=== PATIENT | female | born 1990 | race Caucasian/White ===

== ENCOUNTER 2020-09-04 06:16 | Inpatient (IN) ==
[2020-09-04] MEDS ORDERED: OXYTOCIN 30 UNITS/500 ML BAG IV PRN ×2 (06:58→08:31)
[2020-09-04] MEDS ORDERED: PENICILLIN G POTASSIUM 6 MU in DEXTROSE 5% 250 ML IV STA (07:07)
--- NOTE | 2020-09-04 07:13 | History & Physical Report ---
Date of Service September 04, 2020 Assessment & Plan (1) SROM (spontaneous rupture of membranes): 30 y/o at 40 4/7 wga presenting w/ SROM -VSS, initial BP mild range, likely as walked in and marci and no hx elevated BPs, will recheck and get labs if indicated -Fetus cat 1 -Labor - SVE slightly progressed from yesterday and marci regularly, will recheck in few hours and start pit if indicated -GBS+, PCN ppx -epidural PRN -will order covid swab Admission and Anticipated Discharge Date Admission Date: September 04, 2020 History of Present Illness Chief Complaint: ROM Primary Care Provider: Robni Davis 30 y/o at 40 4/7 wga w/ NATALIYA 08/31 by LMP c/w 1st tri US presents after LOF around 5AM as she walked to the bathroom. This continued a bit more as she walked around. Had been marci all day yesterday, worsened after leaking began. 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 G2 current 30 day cycles Hx HSV Last pap 2019 wnl, no hx abnl Allergies Allergy/AdvReac Type Severity Reaction Status Date / Time nickel Allergy Unknown RASH Verified 09/03/20 16:52 codeine AdvReac Unknown NAUSEA/VOMI Verified 09/03/20 16:52 TTING Home Medications Medication Instructions Recorded Confirmed Type aspirin 81 mg tablet,delayed 81 mg PO DAILY 01/31/20 09/03/20 History release famotidine 40 mg tablet 40 mg PO BID 01/31/20 09/03/20 History prenat.vits,dru,lag-syjm-mgftc 1 tab PO DAILY 01/31/20 09/03/20 History valacyclovir 1 gram tablet 1,000 mg PO ONCE 30 Days #30 tab 08/08/20 09/03/20 Rx Patient History Medical History Genital herpes No known health problems Surgical History History of esophagogastroduodenoscopy (EGD) S/P cholecystectomy S/P colonoscopy S/P tonsillectomy S/P wisdom tooth extraction Family History Mother Colorectal cancer Father Thyroid disease Heart disease Aunt Colorectal cancer Grandfather (Maternal) Colorectal cancer Grandmother (Maternal) Colorectal cancer Social History Smoking Status: Never smoker Hx Alcohol Use: No Hx Substance Use: No Preferred Language: Estonian Communication Ability: Effective Log Preparer Required: No Beliefs That Will Affect Care: None marital status: marital status details: Magnus (33) [phone] Current Living Situation: Spouse Current Living Situation Comment: lives with spouse, 1 cat, pt changing litter, wearing mask and gloves. 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 Feels Safe at Home: Yes Physical Exam Constitutional: WD/WN, vitals as above Respiratory: normal respiratory effort; no respiratory distress and no labored breathing Gastrointestinal (Abdomen): Inspection/Auscultation: abdomen normal to inspection Percussion/Palpation: abdomen soft; abdomen nontender and no guarding Psychiatric: A+Ox3, euthymic affect Genitourinary: OB Exam Abdomen: + vertex (confirmed by BSUS) and + estimated weight (7-8lb) Manual OB Exam: + cervical dilation 2 cm, + cervical effacement 80%, + station -2 and + amniotic fluid (Gross pooling noted) meconium (light) and nitrazine positive OB Exam Monitor Tracing: + external FHT monitor used, + external uterine monitor used (q4-5min) and + category I (130/mod/+accel/-decel) SSE neg for HSV lesions Results & Data ([facility]) Vital Signs (Past 12 Hours) Vital Signs Pulse BP 09/04/20 06:35 80 141/78 H Laboratory Results OB Labs: Blood Type A Positive 02/01/20 Antibody Screen NEGATIVE 02/01/20 Hemoglobin 11.2 g/dL (12.0-16.0) L 06/09/20 Hematocrit 33.9 % (37-47) L 06/09/20 Mean Corpuscular Volume 88.5 fL (80-100) 02/01/20 Platelet Count 232 K/uL (130-400) 02/01/20 Rubella IgG Antibody Immune (Immune) 02/01/20 Rapid Plasma Reagin Nonreactive (Nonreactive) 02/01/20 Hepatitis B Surface Antigen Neg (Neg) 02/01/20 HIV (1&2) Ab and P24 Ag, 4th Gener Neg (Neg) 02/01/20 Glucose 1 Hour 50 gm Load 162 mg/dl (70-130) H 03/21/20 Maternal Serum Alpha Fetoprotein 23.1 ng/mL 03/21/20 OB Optional Labs: Chlamydia trachomatis RNA NOT DETECTED (NOT DETECTED) 02/01/20 Neisseria gonorrhoeae RNA NOT DETECTED (NOT DETECTED) 02/01/20 Alpha Fetoprotein Triple Screen SEE NOTE 03/21/20 Labs Reviewed: failed 16wk 1hr glucola, 2hr gtt wnl 03/21/20 neg msafp 02/05/20 panorama low risk GBS+ Diagnostic Findings Posterior placenta Code Status & VTE Plan VTE Prophylaxis Plan VTE Prophylaxis will be ordered: Yes Coding Level of Care Code None Diagnoses SROM (spontaneous rupture of membranes)
[2020-09-04 07:54] LABS: Hemoglobin 12.3 g/dL (12.0-16.0); Mean Corpuscular Hemoglobin 30.4 pg (25-34); Mean Corpuscular Hgb Conc 34.2 g/dL (32-36); Mean Corpuscular Volume 89.1 fL (80-100); Mean Platelet Volume 12.9 fL (7.4-10.4); Platelet Count 126 K/uL (130-400); RDW Coefficient of Variation 13.5 % (11.5-14.5); RDW Standard Deviation 44.1 fL (36.4-46.3); Red Blood Count 4.04 M/uL (4.2-5.4); White Blood Count 11.59 K/uL (4.8-10.8)
[2020-09-04 07:55] LABS: Platelet Estimate Decreased (Normal)
[2020-09-04] MEDS: LACTATED RINGER'S 1,000 ML IV PRN ×3 (08:00→18:47)
[2020-09-04] MEDS: PENICILLIN G POTASSIUM 3 MU in DEXTROSE 5% 100 ML IV PRN ×3 (11:46→20:11)
[2020-09-04] MEDS ORDERED: fentaNYL citrate 100 MCG/2 ML VIAL ONE (14:57)
[2020-09-04] MEDS ORDERED: fentaNYL 2MCG/ML ROPIVACAINE 1.25MG/ML 100 ML BAG EPI ONE (14:57)
[2020-09-04] MEDS ORDERED: SODIUM CHLORIDE 0.9% INJ 10 ML VIAL ONE (14:57)
[2020-09-04] MEDS ORDERED: ePHEDrine sulfate 50 MG/ML AMP ONE (14:57)
[2020-09-04] MEDS ORDERED: BUPIVACAINE 0.25% 30 ML VIAL ONE (14:57)
--- NOTE | 2020-09-04 15:38 | Anesthesiology Consultation ---
Date of Service September 04, 2020 Assessment & Plan (1) Encounter for pre-operative examination: Chart Review Chart Review: Patient NOT seen in Pre Admission Testing and Acceptable Risk for Labor Epidural Consults Requested none ASA ASA2 Proposed Anesthesia Anesthesia Type: Labor Epidural Risk / Benefits Reviewed With: PT / POA / Parent / Guardian, Accepts Plan and Informed Consent Obtained History Height/Weight Height: 5 ft 2 in Weight: 68.039 kg Allergies Allergy/AdvReac Type Severity Reaction Status Date / Time nickel Allergy Unknown RASH Verified 09/04/20 10:02 codeine AdvReac Unknown NAUSEA/VOMI Verified 09/04/20 10:02 TTING Medications Home Medications Medication Instructions Recorded Confirmed Last Taken aspirin 81 mg tablet,delayed 81 mg PO DAILY 01/31/20 09/04/20 09/04/20 05:00 release famotidine 40 mg tablet 40 mg PO BID 01/31/20 09/04/20 09/04/20 05:00 prenat.vits,dru,vct-nshs-ahfub 1 tab PO DAILY 01/31/20 09/04/20 09/04/20 05:00 valacyclovir 1 gram tablet 1,000 mg PO ONCE 30 Days #30 tab 08/08/20 09/04/20 09/04/20 05:00 Active Medications Generic Name Dose Route Start Last Admin Trade Name Crystal PRN Reason Stop Dose Admin Penicillin G Potassium 3 mu/ 106 mls @ 100 mls/hr 09/04/20 06:58 09/04/20 15:37 Dextrose IV 09/14/20 06:57 100 mls/hr Q4H PRN Administration Give until delivery Lactated Ringer's 1,000 mls @ 125 mls/hr 09/04/20 06:58 09/04/20 15:13 Lr IV 09/06/20 06:57 999 mls/hr .Q8H PRN Administration L&D Protocol Protocol NPO Date Last Intake of Fluids: 09/04/20 Time Last Intake of Fluids: 09:00 Date Last Intake of Solids: 09/03/20 Time Last Intake of Solids: 21:00 Past Medical History Medical History Genital herpes No known health problems Exercise / Class Metabolic Activity II 4-5 Yardwork/Stairs/Walk up hill Past Family History Family History Mother Colorectal cancer Father Thyroid disease Heart disease Aunt Colorectal cancer Grandfather (Maternal) Colorectal cancer Grandmother (Maternal) Colorectal cancer Past Surgical History Surgical History History of esophagogastroduodenoscopy (EGD) S/P cholecystectomy S/P colonoscopy S/P tonsillectomy S/P wisdom tooth extraction Past Anesthesia History No Hx of Anesthesia Complications and No Family Hx of Anesthesia Complications History of PONV No Hx of PONV and No Hx of Motion Sickness Social History Smoking Status: Never smoker Do You Dip or Chew Tobacco: No Hx Alcohol Use: No Hx Substance Use: No Physical Exam Vital Signs Last Vital Signs Temp 36.5 C 09/04/20 13:45 Pulse 69 09/04/20 15:36 Resp 20 09/04/20 09:30 BP 135/79 09/04/20 15:35 Pulse Ox 97 09/04/20 15:36 ENMT Mouth: no dentition abnormality Thyromental Distance: > or= 3.5 Finger Breadths Mallampati Class: II Neck normal visual inspection Respiratory normal respiratory effort Auscultation: lungs clear to auscultation bilaterally Cardiovascular Rate/Rhythm: regular rate and regular rhythm Psychiatric Orientation: alert Lab Results Anesthesia Preop Results Results Anesthesia Widget: 2 WBC 11.59 K/uL (4.8-10.8) H 09/04/20 Hgb 12.3 g/dL (12.0-16.0) 09/04/20 Hct 36.0 % (37-47) L 09/04/20 Plt 126 K/uL (130-400) L 09/04/20 SARS-CoV-2, RNA, NAAT NEGATIVE (NEGATIVE) 09/04/20 Testing Laboratory Results 09/04/20 07:20
[2020-09-04] MEDS ORDERED: ePHEDrine sulfate 50 MG/ML AMP IV PRN (15:40)
[2020-09-04] MEDS ORDERED: diphenhydrAMINE 50 MG/ML VIAL IV PRN (15:40)
[2020-09-04] MEDS ORDERED: NALOXONE HCL 1 MG in SODIUM CHLORIDE 0.9% 1000ML 1,000 ML IV PRN (15:40)
[2020-09-04] MEDS ORDERED: NALOXONE HCL 0.4 MG/1 ML VIAL/CARP IV PRN (15:40)
[2020-09-04] MEDS: fentaNYL 2MCG/ML ROPIVACAINE 1.25MG/ML 100 ML BAG EPI PRN (22:57)
[2020-09-05] MEDS: PENICILLIN G POTASSIUM 3 MU in DEXTROSE 5% 100 ML IV PRN (00:08)
[2020-09-05] MEDS: LACTATED RINGER'S 1,000 ML IV PRN (03:17)
[2020-09-05] MEDS: fentaNYL 2MCG/ML ROPIVACAINE 1.25MG/ML 100 ML BAG EPI PRN (03:40)
[2020-09-05] MEDS ORDERED: SUPERCREAM 0.870% 15 GM JAR EXT PRN (04:42)
[2020-09-05] MEDS ORDERED: OXYTOCIN 30 UNITS/500 ML BAG IV PRN (04:42)
[2020-09-05] MEDS ORDERED: ACETAMINOPHEN 325 MG TAB PO PRN (04:42)
[2020-09-05] MEDS ORDERED: BENZOCAINE 20% AER SPR 82.5 GM CAN EXT PRN (04:42)
[2020-09-05] MEDS ORDERED: DIPHTHERIA/TETANUS/PERTUSSIS 0.5 ML SYR/VIAL IM ONE (04:42)
[2020-09-05] MEDS ORDERED: HYDROCORTISONE ACETATE 25 MG SUPP PR PRN (04:42)
--- NOTE | 2020-09-05 06:34 | Anesthesia Procedure Note ---
Date of Service September 05, 2020 Anesthesia Post Epidural Note Vital Signs Vital Signs: Temp Pulse Resp BP Pulse Ox 37.1 C 76 18 112/72 98 09/05/20 01:00 09/05/20 06:26 09/05/20 06:10 09/05/20 06:26 09/05/20 04:42 Pain Intensity Bilateral Abdomen: Pain Intensity: 0 Notes Mental Status: alert / awake / arousable and participated in evaluation Patient Amnestic to Procedure: No Nausea / Vomiting: adequately controlled Pain: adequately controlled Airway Patency, RR, SpO2: stable & adequate BP & HR: stable & adequate Hydration State: stable & adequate Neuraxial Anesthesia: was administered and sensory block is resolving Anesthetic Complications: no major complications apparent and Pt Satisfied with anesthetic care Epidural: Removed without complications and With tip intact
[2020-09-05] MEDS: DOCUSATE SODIUM 100 MG CAP PO SCH ×2 (08:30→20:35)
[2020-09-05] MEDS: IBUPROFEN 600 MG TAB PO PRN (08:30)
[2020-09-05] MEDS: PRENATAL VITAMIN 1 TAB PO SCH (08:30)
[2020-09-05] MEDS: FERROUS SULFATE 325 MG TAB PO SCH (08:30)
[2020-09-06 06:22] LABS: Hematocrit (blood only) 27.4 % (37-47); Hemoglobin 9.1 g/dL (12.0-16.0)
--- NOTE | 2020-09-06 06:29 | Obstetrical Progress Note ---
Date of Service <Sachin Maria MD - Last Filed: 09/06/20 07:40> September 06, 2020 Assessment & Plan <Sachin Maria MD - Last Filed: 09/06/20 07:40> (1) state: 30 y/o at 40 5/7. s/p on 09/05 (~midnight early 09/05), PPD1. A pos. RI. GBS s/p PCN. - meeting PPD1 milestones - vitals stable. BP 126/88 - Hb 12.3->9.1. daily iron supp until 6 wk visit - tentative dispo today. 6 wk f/u (2) Group B streptococcal infection during : - s/p treatment Subjective <Sachin Maria MD - Last Filed: 09/06/20 07:40> Ambulation: ambulating normally Voiding: no voiding problems Passing Gas:: Yes Diet Tolerance:: regular diet Lochia:: Small Feeding Type:: bottle feeding Current Pain Level(1-10): 1 Prefers home today, but will wait for peds regarding whether dispo today or tomorrow. No other complaints. Review of Systems Denies fever, chills, sweats Denies shortness of breath, chest pain, palpitations. Denies breast pain. Denies dysuria. Denies headache or changes in vision. Denies nausea/vomiting. Denies numbness, tingling, weakness. Denies calf pain. Denies mood complaints Physical Exam <Sachin Maria MD - Last Filed: 09/06/20 07:40> General: Alert, oriented. No acute distress. Cardiac: Regular rate and rhythm, no murmurs/rubs/gallops. Respiratory: Clear to auscultation bilaterally, no wheezes/rales/rhonchi. No respiratory distress. Abdomen: , soft. Uterus: Uterine fundus firm, palpable 1cm below umbilicus. Lower Extremities: No lower extremity edema or swelling. No deep calf pain. Lilo's negative bilaterally. Results & Data ([facility]) <Sachin Maria MD - Last Filed: 09/06/20 07:40> Vital Signs (Past 12 Hours) Vital Signs Temp Pulse Resp BP 09/05/20 23:30 36.7 C 71 18 126/88 09/05/20 20:00 36.7 C 76 18 130/82 Medications Administered <Jannette Ha MD, FACOG - Last Filed: 09/06/20 08:00> Co-Signing Physician Notes Resident Physician Supervision Note: I interviewed and examined the patient. Discussed with Dr. Sachin Maria and agree with findings and plan as documented in the note. Any exceptions or clarifications are listed here: [None] Documented By: Jannette Ha MD, FACOG
[2020-09-06] MEDS: PRENATAL VITAMIN 1 TAB PO SCH (07:44)
[2020-09-06] MEDS: FERROUS SULFATE 325 MG TAB PO SCH (07:44)
[2020-09-06] MEDS: DOCUSATE SODIUM 100 MG CAP PO SCH (07:44)
[2020-09-06] MEDS: IBUPROFEN 600 MG TAB PO PRN (08:02)
[2020-09-06] MEDS ORDERED: bisacodyL 5 MG TABEC PO SCH (20:00)
[2020-09-07] MEDS ORDERED: bisacodyL 10 MG SUPP PR PRN (06:00)
--- NOTE | 2020-09-10 10:32 | Delivery Summary ---
DATE OF OPERATION: 09/05/2020 PROCEDURE: Normal spontaneous vaginal delivery with second-degree perineal laceration repair. ESTIMATED BLOOD LOSS: 300 mL. DRAINS: None. FLUIDS: Continuous lactated Ringer. URINE OUTPUT: Not measured. COMPLICATIONS: None. FINDINGS: Viable male infant with weight of 7 pounds, 0.7 ounces and Apgars of 8 and 9 at 1 and 5 minutes respectively. DESCRIPTION OF PROCEDURE: The patient progressed to 10 cm dilated, 100% effaced, +2 station, pushed over intact perineum with epidural anesthesia and delivered a viable male infant with weight and Apgars as noted above. Head of the delivered in KOBY position, restituted to left transverse. No nuchal cord was noted. Body and shoulders quickly followed. was noted to be vigorous soon after delivery and a 1-minute delayed cord clamping was initiated. Cord was then double clamped and cut. remained to abdomen. Cord blood was obtained. Attention was then turned to delivery of the placenta, which was delivered intact, 3-vessel cord, gentle cord traction. On inspection of the perineum, vagina, and cervix, there was noted to be second degree perineal laceration, which was repaired with 3-0 Vicryl in a traditional crown stitch. Needle, sponge and instrument counts were correct at the completion of the case, both mother and were stable in the immediate post-delivery period. I attest to the content of the Intraoperative Record and any orders documented therein. Any exception s are noted below.
== END 2020-09-06 12:40 | disposition home or self-care (01) | DRG 806 ==
LOC: 4S1 06:16 → 4S2 09-05 07:20